=== PATIENT | female | born 1970 | race Caucasian/White ===

== ENCOUNTER 2025-04-29 18:17 | Emergency (ER) | payer BC, SELFPAY ==
[2025-04-29] VITALS (16 sets, daily range): BP systolic 85–104; BP diastolic 64–88; PULSE 66–160; RESP 10–20; TEMP 36.4; O2SAT 95–100
--- NOTE | ~2025-04-29 | XR_ITS ---
XR chest 1V portable INDICATION:svt . REFERENCE: None FINDINGS: A single AP of the chest demonstrates enlarged heart. Groundglass opacities are present bilaterally. There is no evidence of pneumothorax or pleural effusion. IMPRESSION: Groundglass opacities bilaterally. Reviewed, dictated and finalized at location [facility]
--- NOTE | 2025-04-29 18:25 | ECG_ITS ---
Test Date: 2025-04-29 18:28:38 Measurements Intervals [place] Rate: 159 P: 0 MD: 0 QRS: 237 QRSD: 106 T: 16 QT: 272 QTc: 442 Interpretive Statements SUPRAVENTRICULAR TACHCARDIA, CONSIDER ATRIAL FLUTTER INCOMPLETE RIGHT BUNDLE BRANCH BLOCK PATTERN CONSISTENT WITH PULMONARY DISEASE MNIMAL Q WAVES- INFERIOR LEADS CONSIDER ANTERIOR INFARCT, AGE INDETERMINATE ABNORMAL ECG No previous ECG available for comparison Electronically Signed On 04-29-2025 20:18:13 [employer]LE [employer] by Phillip Lopez D.O.
--- NOTE | 2025-04-29 18:38 | ED_ITS ---
HPI - Arrhythmia/Palpitations General Chief Complaint: Arrhythmia/Palpitations Stated Complaint: dizzy, svt Time Seen by Provider: 04/29/25 18:28 Source: patient and EMS (received report from EMT) Mode of arrival: EMS Limitations: no limitations History of Present Illness HPI narrative: Patient reports starting to feel dizzy and have palpitations around 3:30 or 4pm. History of SVT for which she had previously been on metoprolol although this was years ago. No history of heart failure. First presented to [facility] urgent care but sequently EMS called who found her to be in SVT with a rate in the 160s and administered 6mg adenosinde which only briefly improved rate to 120s and then returned to 160s. She had an echo done when she was . DOes not follow regularly with a candy separator hard. Uses marijuana a few days per week but otherwise denies recreational drugs. Typically only has 1 cup of coffee per day but does not that today she had 2. Not on anticoagulation. Denies chest pain. Does feel short of breath. Occasionally takes 81mg ASA but not for the past several days. Post menopausal. Related Data Allergies Allergy/AdvReac Type Severity Reaction Status Date / Time No Known Allergies Allergy Verified 04/29/25 20:43 [facility] Past Medical History Medical History Hx of supraventricular tachycardia Post-menopausal Social History Social History Social History: Caffeine: Typically 1 cup coffee/day Substance use type: marijuana Other substance usage details: denies other recreational drugs Occupation/Education: occupation Additional occupation/education comments: employed Exam 2 Narrative: GENERAL: Well-appearing, well-nourished, and in no acute distress. HEAD: Normocephalic, atraumatic. EYES: Non injected, non icteric ENT: Nares clear, no rhinorrhea or epistaxis. Gross auditory acuity intact. NECK: Supple. No meningismus. CHEST: Speaking in full sentences. No respiratory distress. HEART: Tachycardic rate and rhythm. . ABDOMEN: Soft, nondistended. No rigidity or guarding. Not peritoneal EXTREMITIES: Normal range of motion. No lower extremity edema. SKIN: Warm, dry, no rash. NEURO: No focal deficits. Alert and oriented. Answering questions. Following commands. Normal speech without aphasia or dysarthria. Ambulates with steady gait. PSYCH: Normal mood and affect. Course Vital Signs Vital signs: Vital Signs Temperature 97.6 F 04/29/25 18:20 Pulse Rate 160 H 04/29/25 18:20 Respiratory Rate 14 04/29/25 18:20 Blood Pressure 95/76 L 04/29/25 18:20 Pulse Oximetry 98 04/29/25 18:20 Oxygen Delivery Room Air 04/29/25 18:20 Temperature 97.6 F 04/29/25 18:20 Pulse Rate 74 04/29/25 21:45 Respiratory Rate 18 04/29/25 22:08 Blood Pressure 103/68 04/29/25 21:59 Pulse Oximetry 97 04/29/25 22:08 Oxygen Delivery Room Air 04/29/25 18:43 MDM MDM Narrative Medical decision making narrative: Patient presents with report of feeling dizzy and having palpitations starting at 3:30 or 4pm. History of SVT for which she was previously on metoprolol but that was years ago. Does not follow with a candy separator hard or take currently. Typically 1 cup coffee but 2 today. Denies recreational drug use other than marijuana a few times/week. Initially at urgent care. Brought by EMS who noted SVT and administered 6mg adenosine. Heart rate briefly went to 120 bpm then back to 160s. In the emergency department she is afebrile with VS that show HR 160 and mild hypotension, with MAP 82mmHg however and subsequent BP measurements reassuring. Patient is on the athletic monitor continuously and connected to EKG with crash cart available. 1L IV fluids and 2.5mg metoprolol over 2 minutes push ordered. Heart rate improves to 130s only. Additional 2.5mg metoprolol given. On the EKG machine, the interval is changed to 50/ms which does more clearly show the presence of SVT (although it prints as standard 25/ms). 6mg adenosine given and patient converts to a NSR. TSH normal. CXR as below ; although otherwise asymptomatic, she does have a leukocytosis so reasonable to treat with short course of antibiotics. First dose doxy given in the ED. Rest of course prescribed. Advised follow up with a PCP but also candy separator hard and prescribed metoprolol in the interim and advised on caffeine intake limitations. Also provided info in DC instructions on Valsalva maneuvers. Otherwise stable for discharge. === Critical care: Patient at risk of decompensation and involvement of 2 or more organ systems. Time spent includes evaluating the patient, interpretating vital signs/EKG, labs, discussing with patient and prehospital providers, documentation, and frequent reassessments. Differential Diagnosis Differential Diagnosis: Differential diagnostic considerations for palpitations?include dysrhythmia, SVT, atrial fibrillation, atrial flutter, electrolyte imbalance, thyroid disease, anxiety, sinus tachycardia, ventricular tachycardia, sick sinus syndrome, WPW, PVC's, PAC's, drug/caffeine excess. Lab Data MDM Lab Attestation statement: I personally reviewed the patient's lab results. 04/29/25 19:21 04/29/25 19:21 Labs: Lab Results 04/29/25 04/29/25 Range/Units 19:21 19:21 WBC 12.4 H (4.5-10.0) K/mm3 RBC 4.28 (4.2-5.4) M/mm3 Hgb 13.4 (12.0-15.0) g/dL Hct 40.9 (37.0-47.0) % MCV 95.6 (80-100) fl MCH 31.3 (26-34) pg MCHC 32.8 (32-36) g/dl RDW 12.2 (11.5-14.5) % Plt Count 243 (150-375) k/mm3 MPV 8.8 (7.4-10.4) fl Immature Gran % (Auto) 0.9 H (0-0.5) % Neut % (Auto) 70.2 (45.5-73.1) % Lymph % (Auto) 19.8 (18.3-44.2) % [place] % (Auto) 5.6 (2.6-8.5) % Eos % (Auto) 2.8 (0-4.4) % Baso % (Auto) 0.7 (0.2-1.2) % Lymph # (Auto) 2.46 (0.9-3.2) K/mm3 [place] # (Auto) 0.7 H (0.1-0.6) K/mm3 Eos # (Auto) 0.4 H (0-0.3) K/mm3 Baso # (Auto) 0.1 (0.0-0.1) K/mm3 Abs Immat Gran (auto) 0.11 H (0.00-0.031) K/mm3 Absolute Neuts (auto) 8.7 H (1.3-6.7) K/mm3 Absolute Nucleated RBC 0.000 (0.0-0.012) K/mm3 Nucleated RBC % 0.0 (0.0-0.2) % PT 12.4 (11.1-14.7) Seconds INR 0.9 APTT 32.1 (22.3-36.8) Seconds Sodium 138 (137-145) mmol/L Potassium 4.0 (3.4-5.0) mmol/L Chloride 111 H (98-107) mmol/L Carbon Dioxide 25 (22-30) mmol/L Anion Gap 2 L (4-12) mmol/L BUN 11 (7-17) mg/dL Creatinine 0.82 (0.7-1.0) mg/dL Estim Creat Clear Calc 69 ml/min Estimated GFR > 60 (59 - ) Glucose 101 (65-110) mg/dL Calcium 8.5 (8.4-10.2) mg/dL Total Bilirubin 0.3 (0.2-1.3) mg/dL AST 28 (14-36) U/L ALT 25 (6-35) U/L Alkaline Phosphatase 80 (38-126) U/L Troponin I < 0.012 (0.000-0.034) ng/mL Total Protein 6.6 (6.3-8.2) g/dL Albumin 3.8 (3.5-5.1) g/dL Lipase 75 (23-300) U/L TSH 1.090 Cancelled (0.465-4.680) uIU/mL Imaging Data Radiologist's impression: ITS Impressions Chest X-Ray 04/29/25 18:51 IMPRESSION: Groundglass opacities bilaterally. ECG Data EKG #1: Attestation: I personally reviewed and interpreted this ECG as follows: ECG completion date: 04/29/25 ECG completion time: 18:28 Prior ECG tracings: not available for review (No prior for comparison) Interpretation: Pre populated EKG algorithm suggests atrial flutter/tachycardia with rapid ventricular response. This is possible but also suspect supraventricular tachycardia given history. Poor R-wave progression across the precordial leads. Ventricular rate 159. QRS 106. QT/QTC 272/361. T-wave inversion in 3 but upright in contiguous inferior leads. No other T-wave inversions. EKG #2: Attestation: I personally reviewed and interpreted this ECG as follows: ECG completion date: 04/29/25 ECG completion time: 18:42 Prior ECG tracings: available for review Interpretation: On the screen, EKG was changed to 50mm/s but it prints as 25mm/s and unclear why it does not initially transmit: Supraventricular tachycardia rate of 139 beats per minute. QRS 106. QT/QTC 281/362. Poor R-wave progression across the precordial leads. T-wave inversion in 3 but upright in contiguous inferior leads. T-wave flattening in V3 but upright in V4 V5 and V6. EKG #3: Attestation: I personally reviewed and interpreted this ECG as follows: ECG completion date: 04/29/25 ECG completion time: 18:53 Interpretation: Normal sinus rhythm at a rate of 85 beats per minute. FL interval 199. QRS 84. QT/QTC 339/382. Poor R-wave progression across the precordial leads. Mild T- wave inversion in 3 but upright in contiguous inferior leads. No other T-wave inversions. Critical Care Time Critical Care Time Critical Care Time: Yes Time Type: Continuous Initial evaluation, discuss w/ involved parties, attempting to gather old records: 10 minutes Documenting medical record: 5 minutes Review of results (EKG's, labs, imaging): 10 minutes Serial repeat bedside evaluation: 15 minutes Discussing case with multiple memebers of the care team and consultants: 5 minutes Total Critical Care Time: 45 Discharge Plan Discharge Clinical Impression: Palpitations, SVT (supraventricular tachycardia), Ground glass opacity present on imaging of lung, Leukocytosis Patient Disposition: Home Condition: Stable Instructions: Antibiotic Form, Supraventricular Tachycardia (ED), Heart Palpitations (DC), Leukocytosis (ED), Valsalva Maneuver (ED), Pneumonia (ED) Additional Instructions: Avoid stimulants like caffeine Will prescribe a low dose beta-jono to take Follow up with primary care provider ; if you do not have one the name of a doctor is listed below. Because this is not your first episode Follow up with cardiology ; the name of one is listed below. You had some findings on her chest x-ray that might represent pneumonia and you had a slightly elevated white blood cell count. Because of this, will treat as a pneumonia. You received your first dose of antibiotic in the ED and the rest of the course has been prescribed. Return with any new or worsening symptoms. If this happens again, you can trial the Valsalva maneuvers in your discharge instructions but call 911/present to the ED if still having symptoms after this. Patient Language: Luxembourger Prescriptions: New metoprolol tartrate 25 mg tablet 12.5 mg PO BID 14 Days Qty: 14 0RF doxycycline hyclate 100 mg tablet 100 mg PO DAILY 4 Days Qty: 4 0RF Rx Instructions: received first dose in ED 04/29 Follow-up/Referrals: Saniya Gomez DO [Physician, Cardiology] Feliberto Natarajan MD [Physician, Family Practice] UNKNOWN,DOCTOR [Primary Care Provider] Stand Alone Forms: Work/School Release IP Time of Disposition: 20:49
[2025-04-29] MEDS: SODIUM CHLORIDE 0.9% IV 1,000 ML 999 ML IV CONT (18:41)
[2025-04-29] MEDS: METOPROLOL TARTRATE INJ 5 MG/5 ML VIAL 2.5 MG IV PUSH ×2 (18:42→19:01)
--- NOTE | 2025-04-29 18:51 | ECG_ITS ---
Test Date: 2025-04-29 18:53:16 Measurements Intervals [place] Rate: 85 P: 58 [place]: 199 QRS: -17 QRSD: 84 T: 30 QT: 339 QTc: 405 Interpretive Statements SINUS RHYTHM LEFT ATRIAL ENLARGEMENT LOW QRS VOLTAGE IN PRECORDIAL LEADS ANTEROSEPTAL INFARCT, AGE INDETERMINATE CONSIDER INFERIOR INFARCT, AGE INDETERMINATE ABNORMAL ECG Compared to ECG 04/29/2025 18:42:50 Supraventricular tachycardia no longer present Electronically Signed On 04-30-2025 07:52:42 BAR TENDER by Phillip Lopez D.O.
--- NOTE | 2025-04-29 18:56 | ECG_ITS ---
Test Date: 2025-04-29 18:42:50 Measurements Intervals [place] Rate: 139 P: 0 MA: 0 QRS: 242 QRSD: 106 T: 32 QT: 281 QTc: 428 Interpretive Statements SUPRAVENTRICULAR TACHYCARDIA INCOMPLETE RIGHT BUNDLE BRANCH BLOCK ANTEROSEPTAL INFARCT, AGE INDETERMINATE PATTERN CONSISTENT WITH PULMONARY DISEASE MINIMAL Q WAVES- INFERIOR LEADS ABNORMAL ECG Compared to ECG 04/29/2025 18:28:38 HEART RATE HAS DECREASED Electronically Signed On 04-30-2025 07:51:06 [facility] by Phillip Lopez D.O.
[2025-04-29] MEDS: ADENOSINE IV SOLN 6 MG/2 ML VIAL IV PUSH (19:01)
[2025-04-29 19:28] LABS: Hematocrit 40.9 % (37.0-47.0); Hemoglobin 13.4 g/dL (12.0-15.0); Immature Granulocyte Percent A 0.9 % (0-0.5); Lymphocytes Absolute Auto 2.46 K/mm3 (0.9-3.2); Mean Corpuscular HGB Conc 32.8 g/dl (32-36); Mean Corpuscular Hemoglobin 31.3 pg (26-34); Mean Corpuscular Volume 95.6 fl (80-100); Nucleated Red Blood Cells Absolute Auto 0.000 K/mm3 (0.0-0.012); Nucleated Red Blood Cells Perc 0.0 % (0.0-0.2); Platelet Count Result 243 k/mm3 (150-375); Red Blood Count 4.28 M/mm3 (4.2-5.4); White Blood Count 12.4 K/mm3 (4.5-10.0)
[2025-04-29 19:39] LABS: INR 0.9; Prothrombin Time 12.4 Seconds (11.1-14.7)
[2025-04-29 19:40] LABS: Partial Thromboplastin Time 32.1 Seconds (22.3-36.8)
[2025-04-29 19:47] LABS: Alanine Aminotransferase 25 U/L (6-35); Albumin Level 3.8 g/dL (3.5-5.1); Alkaline Phosphatase 80 U/L (38-126); Anion Gap 2 mmol/L (4-12); Aspartate Amino Transferase 28 U/L (14-36); Bilirubin,Total 0.3 mg/dL (0.2-1.3); Blood Urea Nitrogen 11 mg/dL (7-17); Calcium 8.5 mg/dL (8.4-10.2); Carbon Dioxide 25 mmol/L (22-30); Chloride 111 mmol/L (98-107); Estimated CRCL calculation 69 ml/min; Estimated Glomerular Filt Rate > 60; Glucose 101 mg/dL (65-110); Lipase 75 U/L (23-300); Potassium 4.0 mmol/L (3.4-5.0); Sodium 138 mmol/L (137-145); Total Protein 6.6 g/dL (6.3-8.2)
[2025-04-29 19:58] LABS: Troponin I < 0.012 ng/mL (0.000-0.034)
[2025-04-29 20:16] LABS: Thyroid Stimulating Hormone 1.090 uIU/mL (0.465-4.680)
[2025-04-29] MEDS: DOXYCYCLINE HYCLATE 100 MG TABLET PO (21:54)
== END 2025-04-29 21:57 | disposition home or self-care (01) ==
PROVIDERS: Emergency Medicine; Emergency Provider Student in an Organized Health Care Education/Training Program
DX: R00.2 Palpitations (principal); I47.10 Supraventricular tachycardia, unspecified; D72.829 Elevated white blood cell count, unspecified; R91.8 Other nonspecific abnormal finding of lung field; I45.10 Unspecified right bundle-branch block; R94.31 Abnormal electrocardiogram [ECG] [EKG]
CPT/HCPCS: 36415; 71045; 80053; 83690; 84443; 84484; 85025; 85610; 85730; 93005; 96361; 96374; 96375; 96376; 99284; A9270; J0153; J0616; J7030